=== PATIENT | female | born 1935 | race Caucasian/White ===

== ENCOUNTER 2018-05-28 14:56 | Inpatient (IN) | payer MEDICARE, BC, OTHER ==
[~2018-05-28] VITALS: Ht 160 cm; Wt 72.6 kg
[~2018-05-28 14:56] MED LIST: ACET-868 PO; ASPI-605 PO; BUSP15TA3 PO; CARB-92 PO; CLON0.5T12 PO; DIVA500T2 PO; DOCU-141 PO; ERGO500014 PO; GABA600T2 PO; HYDR-3974 PO; LACT10SO PO; LEVO50TA PO; MAG355OR18 PO; MAGN400O21 PO; METO25TA6 PO; ONDA4TAB5 PO; OXCA300T4 PO; QUET25TA PO; SENN8.6T60 PO; SIMV20TA6 PO; TRAZ-182 PO; ZOLP5TAB2 PO
[2018-05-28] MEDS ORDERED: IV NS 0.9% 1,000 ML BAG IV ONE ×2 (15:30→17:00)
[2018-05-28] MEDS ORDERED: CEFTRIAXONE 1GM BAG (ER ONLY) 50 ML IV ONE ×2 (15:30→15:34)
[2018-05-28] MEDS ORDERED: LEVOFLOXACIN 750 MG /D5W 150ML 150 ML IV ONE ×2 (15:30→15:51)
[2018-05-28] MEDS ORDERED: VANCOMYCIN 1 GM in IV D5W 250 ML IV ONE (15:30)
--- NOTE | 2018-05-28 15:32 | NUR ---
IV started and blood drawn with blood culture x2 - daughter at bedside
[2018-05-28 15:38] LABS: BASOPHILS % (AUTO) 0.3 % (0.0-2.0); EOSINOPHILS % (AUTO) 0.4 % (0.0-6.0); HEMATOCRIT 47 % (33-45); HEMOGLOBIN 15.5 g/dL (11.5-14.8); LYMPHOCYTES # (AUTO) 0.9 /CMM (0.8-4.8); LYMPHOCYTES % (AUTO) 6.5 % (20.0-44.0); MEAN CORPUSCULAR HGB CONC 33 g/dl (31.0-36.0); MEAN CORPUSCULAR VOLUME 95 fL (82-100); MONOCYTES # (AUTO) 0.7 /CMM (0.1-1.30); MONOCYTES % (AUTO) 5.3 % (2.0-12.0); NEUTROPHILS # (AUTO) 11.8 /CMM (1.8-8.9); NEUTROPHILS % (AUTO) 87.5 % (43.0-81.0); PLATELET COUNT (AUTO) 294 /CMM (150-450); RED BLOOD CELL COUNT(AUTO) 4.97 MIL/uL (4.0-5.2); WHITE BLOOD COUNT (AUTO) 13.5 K/uL (4.3-11.0)
--- NOTE | 2018-05-28 15:46 | NUR ---
nasal swab for flu obtained and sent to lab
[2018-05-28 15:49] LABS: CALCIUM, SERUM 8.7 mg/dL (8.5-10.1); CARBON DIOXIDE 34 mmol/L (21-32); CHLORIDE 102 mmol/L (98-107); CREATININE 0.7 mg/dL (0.6-1.3); GLUCOSE 170 mg/dL (74-106); POTASSIUM 4.5 mmol/L (3.5-5.1); SODIUM SERUM 142 mmol/L (136-145); UREA NITROGEN, BLOOD 12 mg/dL (7-18)
[2018-05-28] MEDS ORDERED: VANCOMYCIN 1 GM VIAL ONE (15:51)
--- NOTE | 2018-05-28 15:58 | NUR ---
lactic acid 4.[address] Palacio
[2018-05-28 16:02] LABS: B-TYPE NATRIURETIC PEPTIDE 1296 PG/ML (0-125)
[2018-05-28] MEDS ORDERED: ASPIRIN 300 MG/SUPP.RECT RC ONE ×2 (17:00→17:07)
--- NOTE | 2018-05-28 17:25 | NUR ---
Attempt to call for report done COREY Carey will call back.
[2018-05-28] MEDS ORDERED: Medication Not On Formulary EA (Ondansetron Hcl (Zofran) 1 TAB) PO SCH (17:30)
[2018-05-28] MEDS ORDERED: MAGNESIUM HYDROXIDE 30 ML UDC PO PRN (17:30)
[2018-05-28] MEDS ORDERED: Z GUARD REMEDY 2 OZ OINT TP PRN (17:30)
[2018-05-28] MEDS ORDERED: ONDANSETRON HCL/PF 4 MG/2 ML VIAL IVP PRN (17:30)
[2018-05-28] MEDS ORDERED: MAG HYDROX/AL HYDROX/SIMETH 30 ML UDC PO PRN (17:30)
[2018-05-28] MEDS ORDERED: clonazePAM 1 MG TABLET PO ONE (17:30)
[2018-05-28] MEDS: GABAPENTIN 300 MG CAPSULE PO SCH (17:30)
[2018-05-28] MEDS ORDERED: HYDROCODONE/APAP 5/325MG 1 EACH TABLET PO PRN (17:30)
[2018-05-28] MEDS ORDERED: ACETAMINOPHEN 325 MG TABLET PO PRN (17:30)
[2018-05-28] MEDS ORDERED: clonazePAM 1 MG TABLET ONE (17:49)
[2018-05-28] MEDS: OXCARBAZEPINE 150 MG TABLET PO SCH (18:00)
[2018-05-28] MEDS: TRAZODONE 50 MG TABLET PO SCH (18:00)
[2018-05-28] MEDS: QUETIAPINE FUMARATE 25 MG TABLET PO SCH (18:00)
--- NOTE | 2018-05-28 18:01 | NUR ---
report given to COREY Young over the phone. wheezing reported by pt's daughter at bedside. Dr. Palacio informed recommended to stop iv bolus. Second liter of NS not completed this was endorsed to COREY Young.
--- NOTE | 2018-05-28 18:08 | NUR ---
reflex lactic being drawn
[2018-05-28] MEDS: DIVALPROEX SODIUM 250 MG TABLET.DR PO SCH (18:30)
--- NOTE | 2018-05-28 18:32 | NUR ---
PT TRANSPORTED TO ROOM 120-2 BY BED PER PROTOCOL. PT SHOWING NO S/O DISTRESS ACCOMPANIED BY DAUGHTER. PT'S CARE ENDORSED TO COREY MONZON AT BEDSIDE. REFLEX LACTIC ACID DRAWN PRIOR TO TRANSFER. IVF BOLU ENDORSED TO NICOLÁS.
[2018-05-28 18:39] LABS: BILIRUBIN,DIRECT 0.1 mg/dL (0.0-0.2); BILIRUBIN,TOTAL 0.4 mg/dL (0.2-1.0)
--- NOTE | 2018-05-28 18:40 | NUR ---
GRADY RN NOTES ADMITTED FROM ER, DX PNEUMONIA PER DR. URRUTIA. ON 3LPM NASAL CANULA. O2 SAT 95% BP 122/77 TEMP 98.8 RR 20 IL 60. PT MADE COMFORTABLE AT THIS TIME. NOTED TO BE JITTERY. IVF 2ND BAG FOR SEPSIS PROTOCOL UNFINISHED DUE TO WHEEZING AT ER. ENDORSED TO NEXT SHIFT FOR CANDY.
--- NOTE | 2018-05-28 19:36 | NUR ---
CERTIFIED PARALEGAL NOTES DAUGHTER WANTS DNR/DNI WITH SELECTIVE TREATMENT. CHARGE NURSE AT BEDSIDE FOR WITNESS. GEOVANNA SIGNED. WILL MONITOR PT CLOSELY.
--- NOTE | 2018-05-28 19:57 | NUR ---
INTERNAL CARVER NOTES RECEIVED PT ON BED, A/O X1. ON TELE MONITOR AFIB 109. ON NASAL CANNULA 4LPM SATURATING WELL. IV ACCESS ON LAC G22 AND LEFT WRIST G22 PATENT AND INTACT. HEAD OF BED ELEVATED. SIDE RAILS UP. CALL LIGHT WITHIN REACH. BED ALARM ON. WILL CONTINUE TO MONITOR PT CLOSELY.
[2018-05-28] MEDS ORDERED: FUROSEMIDE 40 MG/4 ML VIAL IV ONE (20:00)
[2018-05-28] MEDS: CARBIDOPA/LEVODOPA 10/100 MG 1 UDTAB PO SCH (20:02)
--- NOTE | 2018-05-28 20:02 | NUR ---
PRODUCTION CREW SUPERVISOR NOTES UNABLE TO GIVE PO MEDS. PT ALTERED AND ASPIRATION RISK. WILL MONITOR PT CLOSELY.
[2018-05-28] MEDS ORDERED: DILTIAZEM HCL 50 MG IV IV ONE (20:30)
[2018-05-28] MEDS ORDERED: ENOXAPARIN SODIUM 40 MG/0.4 ML DISP.SYRIN SQ ONE (20:30)
[2018-05-28] MEDS ORDERED: DILTIAZEM HCL 50 MG IV IV PRN (20:30)
[2018-05-28 22:00] VITALS: BP 116/60
--- NOTE | 2018-05-28 22:58 | NUR ---
RADIOLOGY PHYSICIAN ASSISTANT NOTES CALLED DR. MEDELLIN FOR PT FEVER OF 101.3. COOLING MEASURES DONE. AWAITING ORDERS. WILL CONTINUE TO MONITOR PT CLOSELY.
[2018-05-29] VITALS (7 sets, daily range): BP systolic 103–136; BP diastolic 68–98
--- NOTE | 2018-05-29 00:04 | NUR ---
PENSION ADMINISTRATOR NOTES CALLED DR. MEDELLIN CALLED FOR TROPONIN OF .486. NO NEW ORDERS. WILL MONITOR PT CLOSELY.
[2018-05-29] MEDS: ACETAMINOPHEN 650 MG/SUPP.RECT RC PRN ×2 (00:07→06:00)
--- NOTE | 2018-05-29 06:47 | NUR ---
CHRONOMETER REPAIRER NOTES NO ACUTE CHANGES NOTED THROUGHOUT THE SHIFT. TROPONIN TRENDING UP, INFORMED ELECTRODE TURNER AND FINISHER NO FURTHER ORDERS. INSERTED DE LEON FOR URINE OUTPUT MONITORING. PROVIDED COMFORT AND SAFETY. WILL ENDORSE TO THE AM NURSE FOR CONTINUITY OF CARE.
[2018-05-29 07:06] LABS: BASOPHILS % (AUTO) 0.2 % (0.0-2.0); EOSINOPHILS % (AUTO) 0.1 % (0.0-6.0); HEMATOCRIT 42 % (33-45); HEMOGLOBIN 13.6 g/dL (11.5-14.8); LYMPHOCYTES # (AUTO) 1.2 /CMM (0.8-4.8); LYMPHOCYTES % (AUTO) 9.6 % (20.0-44.0); MEAN CORPUSCULAR HGB CONC 33 g/dl (31.0-36.0); MEAN CORPUSCULAR VOLUME 94 fL (82-100); MONOCYTES # (AUTO) 0.8 /CMM (0.1-1.30); NEUTROPHILS # (AUTO) 10.9 /CMM (1.8-8.9); NEUTROPHILS % (AUTO) 84.1 % (43.0-81.0); PLATELET COUNT (AUTO) 225 /CMM (150-450); RED BLOOD CELL COUNT(AUTO) 4.45 MIL/uL (4.0-5.2)
[2018-05-29 07:26] LABS: CALCIUM, SERUM 7.9 mg/dL (8.5-10.1); CARBON DIOXIDE 31 mmol/L (21-32); CHLORIDE 104 mmol/L (98-107); CREATININE 0.8 mg/dL (0.6-1.3); GLUCOSE 130 mg/dL (74-106); MAGNESIUM 1.9 mg/dL (1.8-2.4); POTASSIUM 4.4 mmol/L (3.5-5.1); SODIUM SERUM 142 mmol/L (136-145); UREA NITROGEN, BLOOD 17 mg/dL (7-18)
[2018-05-29] MEDS: LEVOTHYROXINE SODIUM 50 MCG TABLET PO SCH (07:30)
[2018-05-29] MEDS: FUROSEMIDE 40 MG/4 ML VIAL IV SCH (08:56)
[2018-05-29] MEDS: DIVALPROEX SODIUM 250 MG TABLET.DR PO SCH ×3 (09:00→18:53)
[2018-05-29] MEDS: CARBIDOPA/LEVODOPA 10/100 MG 1 UDTAB PO SCH ×4 (09:00→21:41)
[2018-05-29] MEDS: GABAPENTIN 300 MG CAPSULE PO SCH ×3 (09:00→18:52)
[2018-05-29] MEDS ORDERED: MAG HYDROX/AL HYDROX/SIMETH 30 ML UDC PO SCH (09:00)
[2018-05-29] MEDS ORDERED: ERGOCALCIFEROL (VITAMIN D 2) 50,000 UNIT CAPSULE PO SCH (09:00)
[2018-05-29] MEDS: DOCUSATE SODIUM 100 MG CAPSULE PO SCH ×2 (09:00→18:51)
[2018-05-29] MEDS: busPIRone HCL 10 MG TABLET PO SCH ×2 (09:00→13:42)
[2018-05-29] MEDS ORDERED: MAGNESIUM HYDROXIDE 30 ML UDC PO SCH (09:00)
[2018-05-29] MEDS: SENNOSIDES 8.6 MG TABLET PO SCH ×2 (09:00→18:53)
[2018-05-29] MEDS: SIMVASTATIN 20 MG TABLET PO SCH (09:00)
[2018-05-29] MEDS: clonazePAM 0.5 MG TABLET PO SCH ×2 (09:00→18:53)
--- NOTE | 2018-05-29 09:00 | NUR ---
AM MEDS HELD DUE TO PATIENT'S MENTAL STATUS AND INABILITY TO FOLLOW COMMANDS WHEN INSTRUCTED TO SWALLOW ASPIRATION PRECAUTIONS IMPLEMENTED AWAITING NAYELI
[2018-05-29] MEDS: ENOXAPARIN SODIUM 40 MG/0.4 ML DISP.SYRIN SQ SCH (11:00)
--- NOTE | 2018-05-29 11:27 | NUR ---
PER ST NAYELIAL RECOMMENDATIONS PUREED DIET WITH NECTAR THICK
[2018-05-29] MEDS ORDERED: PIPERACILLIN /TAZOBACTAM 3.375 G in IV D5W 50 ML IV ONE (12:00)
[2018-05-29] MEDS: LACTULOSE 10 G/15 ML UDC (PYXIS) PO SCH (12:29)
[2018-05-29] MEDS: ASPIRIN EC 81 MG TABLET.DR PO SCH (12:31)
[2018-05-29] MEDS: OXCARBAZEPINE 150 MG TABLET PO SCH ×2 (12:31→18:53)
[2018-05-29] MEDS: METOPROLOL TARTRATE 25 MG TABLET PO SCH ×2 (12:33→18:52)
--- NOTE | 2018-05-29 13:16 | NUR ---
XRAY FOR HIP PER DR URRUTIA
[2018-05-29] MEDS ORDERED: DILTIAZEM HCL 25 MG IV IV PRN (13:30)
--- NOTE | 2018-05-29 15:59 | NUR ---
per dr Todd obtain consult for Neurology and Psych verbal readback done
--- NOTE | 2018-05-29 16:00 | NUR ---
FACE SHEET FAXED TO [employer]
[2018-05-29] MEDS: PIPERACILLIN /TAZOBACTAM 3.375 G in IV D5W 100 ML IV SCH (18:46)
[2018-05-29] MEDS: QUETIAPINE FUMARATE 25 MG TABLET PO SCH (18:52)
[2018-05-29] MEDS: busPIRone 5 MG TABLET PO SCH (18:52)
[2018-05-29] MEDS: TRAZODONE 50 MG TABLET PO SCH (18:53)
--- NOTE | 2018-05-29 19:00 | NUR ---
SPOKE TO LAB REGARDING DELIVERY OF FLU SWABS THEY ARE UNAVAILABLE IN THE UNIT
--- NOTE | 2018-05-29 19:30 | NUR ---
RECEIVED PT IN BED SLEEPING, AROUSABLE BY CALLING HER NAME. BREATHING EVENLY . NO SOB. ON SUPPLEMENTAL O2. NO S/S OF PAIN OR DISCOMFORT. NO IV SITE UPON RECEIVING THE PT. A 22G IV WAS INSERTED ON L HAND W/ GOOD BLOOD DRAW AND ZOSYN WAS RESUMED. BED LOW LOCKED . SRX2. CALL LIGHT WITHIN REACH. WILL CONT TO MONITOR ,
--- NOTE | 2018-05-29 19:40 | NUR ---
RN NOTES PATIENT RESTING IN BED. NONLABORED BREATHING NOTED ON 2L NASAL CANNULA. NO FACIAL GRIMACING ASPIRATION AND FALL PRECAUTIONS IMPLEMENTED THROUGHOUT SHIFT. PATIENT KEPT CLEAN AND DRY THROUGHOUT SHIFT. TURNED AND REPOSITIONED EVERY 2HOURS PATIENT IV LINE NOW. X2 ATTEMPTED IV LINE INSERTIONS. ENDORSED TO DEDRICK NICOLE
[2018-05-29] MEDS ORDERED: ENOXAPARIN SODIUM 40 MG/0.4 ML DISP.SYRIN SQ SCH (22:00)
[2018-05-30] MEDS: PIPERACILLIN /TAZOBACTAM 3.375 G in IV D5W 100 ML IV SCH ×3 (01:49→17:16)
[2018-05-30 04:00] VITALS: BP 111/55
[2018-05-30 06:29] LABS: BASOPHILS % (AUTO) 0.5 % (0.0-2.0); EOSINOPHILS % (AUTO) 2.9 % (0.0-6.0); HEMATOCRIT 41 % (33-45); HEMOGLOBIN 13.4 g/dL (11.5-14.8); LYMPHOCYTES # (AUTO) 1.2 /CMM (0.8-4.8); LYMPHOCYTES % (AUTO) 15.7 % (20.0-44.0); MEAN CORPUSCULAR HGB CONC 32 g/dl (31.0-36.0); MEAN CORPUSCULAR VOLUME 94 fL (82-100); MONOCYTES # (AUTO) 0.5 /CMM (0.1-1.30); MONOCYTES % (AUTO) 6.8 % (2.0-12.0); NEUTROPHILS # (AUTO) 5.6 /CMM (1.8-8.9); NEUTROPHILS % (AUTO) 74.1 % (43.0-81.0); PLATELET COUNT (AUTO) 222 /CMM (150-450); WHITE BLOOD COUNT (AUTO) 7.6 K/uL (4.3-11.0)
--- NOTE | 2018-05-30 06:39 | NUR ---
PT IN BED RESTING COMFORTABLY. BREATHING EVENLY. NO SOB. NO ACUTE EVENT DURING THE NIGHT . REMAINED STABLE. CLEANED AND DRIED. REPOSITIONED ROUTINELY. BED LOW LOCKED. SRX3. CALL LIGHT WITHIN REACH. WILL CONT TO MONITOR AND WILL ENDORSE TO AM SHIFT FOR CANDY .
[2018-05-30 06:41] LABS: ALANINE AMINOTRANSFERASE 10 U/L (12-78); ALBUMIN 2.4 g/dL (3.4-5.0); ALKALINE PHOSPHATASE 64 U/L (46-116); ASPARTATE AMINOTRANSFERASE 20 U/L (15-37); BILIRUBIN,TOTAL 0.9 mg/dL (0.2-1.0); CALCIUM, SERUM 8.6 mg/dL (8.5-10.1); CARBON DIOXIDE 31 mmol/L (21-32); CHLORIDE 104 mmol/L (98-107); CREATININE 0.8 mg/dL (0.6-1.3); GLUCOSE 125 mg/dL (74-106); PHOSPHORUS 4.1 mg/dL (2.5-4.9); POTASSIUM 3.6 mmol/L (3.5-5.1); SODIUM SERUM 142 mmol/L (136-145); TOTAL PROTEIN, SERUM 6.4 g/dL (6.4-8.2); UREA NITROGEN, BLOOD 24 mg/dL (7-18)
[2018-05-30 07:08] LABS: APPEARANCE,URINE TURBID (CLEAR); BILIRUBIN,URINE NEGATIVE (NEGATIVE); BLOOD, URINE 3+ Ery/uL (NEGATIVE); COLOR,URINE YELLOW (YELLOW); KETONES,URINE TRACE (NEGATIVE); LEUKOCYTE ESTERASE ,URINE TRACE (NEGATIVE); NITRITE, URINE NEGATIVE (NEGATIVE); PROTEIN,URINE 1+ mg/dl (NEGATIVE); UGLUCOSE NEGATIVE (NEGATIVE); UROBILINOGEN,URINE 0.2 EU/dL (0.2)
[2018-05-30 07:18] LABS: RBC,URINE 51-80 /HPF (0-2)
[2018-05-30 07:20] LABS: BACTERIA,URINE Moderate /HPF (None Seen); SQUAMOUS EPITHELIAL CELL,UR Few /HPF (None Seen)
--- NOTE | 2018-05-30 07:30 | NUR ---
M/S RN - Assessment Patient is awake, non-verbal, no s/s pain, no evidence of resp. distress seen, on 2lpm via NC. Saline lock on the left hand is patent, intact, with no signs of infiltration. Hendrix catheter in place. Labs reviewed no critical results seen, troponin trending down. All needs attended and met. Fall and aspiration precautions maintained. Will continue with current medical management.
[2018-05-30] MEDS: LEVOTHYROXINE SODIUM 50 MCG TABLET PO SCH (07:34)
[2018-05-30 08:00] VITALS: BP 96/44
[2018-05-30] MEDS: CARBIDOPA/LEVODOPA 10/100 MG 1 UDTAB PO SCH ×4 (08:34→21:17)
[2018-05-30] MEDS: SENNOSIDES 8.6 MG TABLET PO SCH ×2 (08:34→16:37)
[2018-05-30] MEDS: OXCARBAZEPINE 150 MG TABLET PO SCH ×2 (08:34→16:37)
[2018-05-30] MEDS: ASPIRIN EC 81 MG TABLET.DR PO SCH (08:34)
[2018-05-30] MEDS: DIVALPROEX SODIUM 250 MG TABLET.DR PO SCH ×3 (08:34→16:37)
[2018-05-30] MEDS: busPIRone 5 MG TABLET PO SCH ×3 (08:34→16:37)
[2018-05-30] MEDS: GABAPENTIN 300 MG CAPSULE PO SCH ×3 (08:34→16:37)
[2018-05-30] MEDS: clonazePAM 0.5 MG TABLET PO SCH ×2 (08:34→16:37)
[2018-05-30] MEDS: SIMVASTATIN 20 MG TABLET PO SCH (08:35)
[2018-05-30] MEDS: LACTULOSE 10 G/15 ML UDC (PYXIS) PO SCH (08:35)
[2018-05-30] MEDS: FUROSEMIDE 40 MG/4 ML VIAL IV SCH (08:35)
[2018-05-30] MEDS: ENOXAPARIN SODIUM 40 MG/0.4 ML DISP.SYRIN SQ SCH (08:38)
[2018-05-30] MEDS: METOPROLOL TARTRATE 25 MG TABLET PO SCH ×2 (08:38→16:38)
[2018-05-30] MEDS ORDERED: ERGOCALCIFEROL (VITAMIN D 2) 50,000 UNIT CAPSULE PO SCH (09:00)
[2018-05-30 16:00] VITALS: BP 161/90
[2018-05-30] MEDS: QUETIAPINE FUMARATE 25 MG TABLET PO SCH (17:16)
[2018-05-30] MEDS: TRAZODONE 50 MG TABLET PO SCH (17:16)
--- NOTE | 2018-05-30 17:55 | NUR ---
M/S RN - Closing notes Patient more awake, nonverbal, remain afebrile, no s/s of pain, not in any for of distress, on 2lpm via NC, tolerated pureed diet well, no n/v. Peripheral IV on the left hand is patent, intact, flushing well. All needs attended and met. Pending neuro and psych consult. Will continue with current medical management.
--- NOTE | 2018-05-30 18:15 | NUR ---
M/S RN - Psych Eval Seen and examined by Dr. You, adjusted psych meds. Per Dr. You, have hospitalist discontinue Trileptal and decrease dose of Depakote.
[2018-05-30 20:00] VITALS: BP 140/75
[2018-05-31] MEDS: PIPERACILLIN /TAZOBACTAM 3.375 G in IV D5W 100 ML IV SCH ×3 (02:55→18:58)
[2018-05-31 04:00] VITALS: BP 152/84
[2018-05-31] MEDS: ACETAMINOPHEN 650 MG/SUPP.RECT RC PRN (04:09)
[2018-05-31 06:21] VITALS: BP 152/84
[2018-05-31 07:22] LABS: BASOPHILS % (AUTO) 0.3 % (0.0-2.0); EOSINOPHILS % (AUTO) 1.2 % (0.0-6.0); HEMATOCRIT 40 % (33-45); HEMOGLOBIN 13.1 g/dL (11.5-14.8); LYMPHOCYTES # (AUTO) 1.2 /CMM (0.8-4.8); LYMPHOCYTES % (AUTO) 12.4 % (20.0-44.0); MEAN CORPUSCULAR HGB CONC 33 g/dl (31.0-36.0); MEAN CORPUSCULAR VOLUME 94 fL (82-100); MONOCYTES # (AUTO) 0.8 /CMM (0.1-1.30); MONOCYTES % (AUTO) 7.7 % (2.0-12.0); NEUTROPHILS # (AUTO) 7.7 /CMM (1.8-8.9); NEUTROPHILS % (AUTO) 78.4 % (43.0-81.0); PLATELET COUNT (AUTO) 233 /CMM (150-450); RED BLOOD CELL COUNT(AUTO) 4.27 MIL/uL (4.0-5.2); WHITE BLOOD COUNT (AUTO) 9.8 K/uL (4.3-11.0)
[2018-05-31 07:31] LABS: CALCIUM, SERUM 8.4 mg/dL (8.5-10.1); CARBON DIOXIDE 28 mmol/L (21-32); CHLORIDE 104 mmol/L (98-107); CREATININE 0.7 mg/dL (0.6-1.3); GLUCOSE 135 mg/dL (74-106); PHOSPHORUS 3.6 mg/dL (2.5-4.9); POTASSIUM 3.5 mmol/L (3.5-5.1); SODIUM SERUM 139 mmol/L (136-145); UREA NITROGEN, BLOOD 26 mg/dL (7-18)
[2018-05-31 08:00] VITALS: BP 145/74
[2018-05-31] MEDS: OXCARBAZEPINE 150 MG TABLET PO SCH (09:00)
[2018-05-31] MEDS: DIVALPROEX SODIUM 125 MG CAP.SPRINK PO SCH ×3 (09:00→17:00)
[2018-05-31] MEDS: ENOXAPARIN SODIUM 40 MG/0.4 ML DISP.SYRIN SQ SCH (11:58)
[2018-05-31] MEDS: LEVOTHYROXINE SODIUM 50 MCG TABLET PO SCH (11:59)
[2018-05-31] MEDS: CARBIDOPA/LEVODOPA 10/100 MG 1 UDTAB PO SCH (11:59)
[2018-05-31] MEDS: LACTULOSE 10 G/15 ML UDC (PYXIS) PO SCH (11:59)
[2018-05-31] MEDS: clonazePAM 0.5 MG TABLET PO SCH ×2 (12:00→18:54)
[2018-05-31] MEDS: METOPROLOL TARTRATE 25 MG TABLET PO SCH ×2 (12:00→18:54)
[2018-05-31] MEDS: SIMVASTATIN 20 MG TABLET PO SCH (12:00)
[2018-05-31] MEDS: GABAPENTIN 300 MG CAPSULE PO SCH ×3 (12:00→18:54)
[2018-05-31] MEDS: SENNOSIDES 8.6 MG TABLET PO SCH ×2 (12:01→18:55)
[2018-05-31] MEDS: ASPIRIN EC 81 MG TABLET.DR PO SCH (12:01)
[2018-05-31] MEDS: busPIRone 5 MG TABLET PO SCH ×3 (12:02→18:54)
[2018-05-31] MEDS: FUROSEMIDE 40 MG/4 ML VIAL IV SCH (12:02)
--- NOTE | 2018-05-31 12:43 | NUR ---
RITA RN NOTE PATIENT DAUGHTER CALLED AND DOES NOT WANT PATIENT TO CONTINUE TRILEPTAL AND PER DAUGHTER, DEPAKOTE DOSE IS TOO LARGE. HELD DEPAKOTE FOR NOW PER DAUGHTER'S REQUEST.
[2018-05-31] MEDS ORDERED: CARBIDOPA/LEVODOPA 25/100 MG 1 UDTAB PO SCH (13:00)
[2018-05-31] MEDS: CARBIDOPA/LEVODOPA 25/100 MG 1 UDTAB PO SCH ×2 (14:29→18:55)
[2018-05-31 16:00] VITALS: BP 106/60
[2018-05-31] MEDS: TRAZODONE 50 MG TABLET PO SCH (18:00)
[2018-05-31] MEDS: QUETIAPINE FUMARATE 25 MG TABLET PO SCH (18:00)
--- NOTE | 2018-05-31 19:15 | NUR ---
ENEDELIASUJESSENIA RN NOTE PATIENT RESTING IN BED IN STABLE CONDITION, DAUGHTER AT BEDSIDE FEEDING PATIENT DINNER. PER DAUGHTER'S REQUEST, HELD TRAZODONE, SEROQUEL, AND DEPAKOTE TONIGHT. WILL NOTIFY AGUILAR PATINO. DISCONTINUED TRILEPTAL PER AGUILAR PATINO DR. AMNN RECOMMENDED. IV SITE ON LEFT WRIST INTACT, CALL LIGHT WITHIN REACH. BED IN LOW LOCKED POSITION, ENDORSED TO PARTNER MANAGER NURSE FOR CONTINUITY OF CARE.
[2018-05-31 20:00] VITALS: BP 139/73
[2018-06-01] MEDS: PIPERACILLIN /TAZOBACTAM 3.375 G in IV D5W 100 ML IV SCH (01:03)
[2018-06-01 04:00] VITALS: BP 125/68
--- NOTE | 2018-06-01 07:30 | NUR ---
MS RN OPENING NOTES RECEIVED PATIENT IN STABLE CONDITION. IN NO APPARENT DISTRESS. BEDSIDE RAILS ARE UPX2. BED IS LOCKED AND LOWERED. CALL LIGHT IS WITHIN REACH. IV LINE IS INTACT AND PATENT. WILL CONTINUE TO MONITOR PATIENT.
[2018-06-01 08:00] VITALS: BP 133/82
[2018-06-01] MEDS: LACTULOSE 10 G/15 ML UDC (PYXIS) PO SCH (08:05)
[2018-06-01] MEDS: SIMVASTATIN 20 MG TABLET PO SCH (08:06)
[2018-06-01] MEDS: clonazePAM 0.5 MG TABLET PO SCH ×2 (08:06→17:27)
[2018-06-01] MEDS: FUROSEMIDE 40 MG/4 ML VIAL IV SCH (08:06)
[2018-06-01] MEDS: busPIRone 5 MG TABLET PO SCH ×3 (08:06→17:27)
[2018-06-01] MEDS: CARBIDOPA/LEVODOPA 25/100 MG 1 UDTAB PO SCH ×3 (08:06→17:25)
[2018-06-01] MEDS: GABAPENTIN 300 MG CAPSULE PO SCH ×3 (08:06→17:25)
[2018-06-01] MEDS: ASPIRIN EC 81 MG TABLET.DR PO SCH (08:06)
[2018-06-01] MEDS: DIVALPROEX SODIUM 125 MG CAP.SPRINK PO SCH ×3 (08:07→17:27)
[2018-06-01] MEDS: LEVOTHYROXINE SODIUM 50 MCG TABLET PO SCH (08:07)
[2018-06-01] MEDS: SENNOSIDES 8.6 MG TABLET PO SCH ×2 (08:07→17:26)
[2018-06-01] MEDS: METOPROLOL TARTRATE 25 MG TABLET PO SCH ×2 (08:07→17:28)
[2018-06-01] MEDS: ENOXAPARIN SODIUM 40 MG/0.4 ML DISP.SYRIN SQ SCH (08:24)
[2018-06-01 15:59] VITALS: BP 120/70
[2018-06-01 16:00] VITALS: BP 120/70
[2018-06-01 17:28] VITALS: BP 120/70
[2018-06-01] MEDS: TRAZODONE 50 MG TABLET PO SCH (17:28)
[2018-06-01] MEDS: QUETIAPINE FUMARATE 25 MG TABLET PO SCH (17:31)
--- NOTE | 2018-06-01 18:33 | NUR ---
MS RN CLOSING NOTES PATIENT IS IN STABLE CONDITION. IN NO APPARENT DISTRESS. BEDSIDE RAILS ARE UPX2. BED IS LOCKED AND LOWERED. CALL LIGHT IS WITHIN REACH. IV LINE IS INTACT AND PATENT. ALL NEEDS WERE MET. WILL ENDORSE CARE TO MECHANICAL DESIGN ENGINEER FACILITIES NURSE FOR CANDY.
== END 2018-06-01 20:23 | DRG 280 ==
LOC: ER 14:58 → TELE-TD 18:06 → TELE1 19:20 → MEDSG1 05-29 10:38
PROVIDERS: ADMIT Internal Medicine; ATTEND Nurse Practitioner Acute Care
DX: I11.0 Hypertensive heart disease with heart failure (principal); I21.A1 Myocardial infarction type 2; G92 Toxic encephalopathy; J96.91 Respiratory failure, unspecified with hypoxia; F02.81 Dementia in other diseases classified elsewhere, unspecified severity, with behavioral disturbance; G30.9 Alzheimer's disease, unspecified; K21.9 Gastro-esophageal reflux disease without esophagitis; R13.10 Dysphagia, unspecified; F32.9 Major depressive disorder, single episode, unspecified; F41.9 Anxiety disorder, unspecified; G62.9 Polyneuropathy, unspecified; E78.5 Hyperlipidemia, unspecified; Z86.73 Personal history of transient ischemic attack (TIA), and cerebral infarction without residual deficits; E03.9 Hypothyroidism, unspecified; G20 Parkinson's disease; I48.2 Chronic atrial fibrillation; E11.9 Type 2 diabetes mellitus without complications; Z66 Do not resuscitate; F20.9 Schizophrenia, unspecified; I50.33 Acute on chronic diastolic (congestive) heart failure
CPT/HCPCS: 36415; 71045-TC; 72170-TC; 80048-TC; 80053-TC; 81000-TC; 82247-TC; 82248-TC; 82962-TC; 83605-TC; 83735-TC; 83880; 84100-TC; 84484-TC; 85025-TC; 87040-TC; 87081-TC; 87086-TC; 87400; 92526; 92611-TC; 93307-TC; A4606; G0378; J0696; J1650; J1940; J1956; J2543; J3370; J3490; J7030; J7050; J7060; Z7610

== ENCOUNTER 2018-06-06 12:29 | Inpatient (IN) | payer MEDICARE, BC, OTHER ==
[2018-06-06] VITALS (25 sets, daily range): BP systolic 102–175; BP diastolic 38–131
[~2018-06-06] VITALS: Ht 156.2 cm; Wt 72.1 kg
[~2018-06-06 12:29] MED LIST changes: +GABA600T12 PO; -GABA600T2 PO
[2018-06-06] MEDS ORDERED: PROPOFOL 0 ML ONE (12:37)
[2018-06-06] MEDS ORDERED: ACETAMINOPHEN 650 MG/SUPP.RECT RC ONE ×2 (12:52→13:00)
[2018-06-06 12:56] LABS: BASOPHILS # (AUTO) 0.1 /CMM (0.0-0.2); BASOPHILS % (AUTO) 0.4 % (0.0-2.0); EOSINOPHILS % (AUTO) 0.1 % (0.0-6.0); HEMATOCRIT 47 % (33-45); HEMOGLOBIN 14.8 g/dL (11.5-14.8); LYMPHOCYTES # (AUTO) 2.2 /CMM (0.8-4.8); LYMPHOCYTES % (AUTO) 14.4 % (20.0-44.0); MEAN CORPUSCULAR HGB CONC 32 g/dl (31.0-36.0); MEAN CORPUSCULAR VOLUME 97 fL (82-100); MONOCYTES # (AUTO) 0.7 /CMM (0.1-1.30); MONOCYTES % (AUTO) 4.3 % (2.0-12.0); NEUTROPHILS # (AUTO) 12.3 /CMM (1.8-8.9); NEUTROPHILS % (AUTO) 80.8 % (43.0-81.0); PLATELET COUNT (AUTO) 359 /CMM (150-450); RED BLOOD CELL COUNT(AUTO) 4.78 MIL/uL (4.0-5.2); WHITE BLOOD COUNT (AUTO) 15.3 K/uL (4.3-11.0)
[2018-06-06] MEDS ORDERED: IV NS 0.9% 1,000 ML BAG IV ONE (13:00)
[2018-06-06] MEDS ORDERED: NOREPINEPHRINE 8 MG in IV D5W 500 ML IV PRN (13:00)
[2018-06-06] MEDS ORDERED: MIDAZOLAM HCL 2 MG/2ML VIAL IV ONE (13:00)
[2018-06-06] MEDS ORDERED: CEFEPIME 1 GM in IV D5W 50 ML IV ONE (13:00)
[2018-06-06] MEDS ORDERED: MIDAZOLAM HCL 2 MG/2ML VIAL ONE (13:00)
[2018-06-06] MEDS ORDERED: FENTANYL PF 100MCG/2ML AMPUL IV ONE (13:00)
[2018-06-06] MEDS ORDERED: FENTANYL PF 100MCG/2ML AMPUL ONE (13:00)
[2018-06-06] MEDS ORDERED: ROCURONIUM BROMIDE 100 MG/10 ML VIAL IV ONE (13:00)
[2018-06-06] MEDS ORDERED: VANCOMYCIN 1 GM in IV D5W 250 ML IV ONE (13:00)
[2018-06-06] MEDS ORDERED: ETOMIDATE 2 MG/ML VIAL IV ONE ×2 (13:00→15:39)
[2018-06-06 13:06] LABS: CALCIUM, SERUM 8.8 mg/dL (8.5-10.1); CARBON DIOXIDE 25 mmol/L (21-32); CHLORIDE 103 mmol/L (98-107); CREATININE 1.1 mg/dL (0.6-1.3); GLUCOSE 266 mg/dL (74-106); POTASSIUM 4.3 mmol/L (3.5-5.1); SODIUM SERUM 142 mmol/L (136-145); UREA NITROGEN, BLOOD 25 mg/dL (7-18)
[2018-06-06 13:12] LABS: ALANINE AMINOTRANSFERASE 13 U/L (12-78); ALBUMIN 2.7 g/dL (3.4-5.0); ALKALINE PHOSPHATASE 79 U/L (46-116); ASPARTATE AMINOTRANSFERASE 23 U/L (15-37); BILIRUBIN,DIRECT 0.1 mg/dL (0.0-0.2); BILIRUBIN,TOTAL 0.7 mg/dL (0.2-1.0); TOTAL PROTEIN, SERUM 8.1 g/dL (6.4-8.2)
[2018-06-06] MEDS ORDERED: CRAN450C PO (13:46)
[2018-06-06] MEDS ORDERED: NA P133E RC (13:46)
[2018-06-06] MEDS ORDERED: WARF2TAB57 PO (13:46)
[2018-06-06] MEDS ORDERED: INSU100V3 SQ (13:46)
[2018-06-06] MEDS ORDERED: AMIN887L PO (13:46)
[2018-06-06] MEDS ORDERED: PANT20TA2 PO (13:46)
[2018-06-06] MEDS ORDERED: LACT10SO PO (13:46)
[2018-06-06] MEDS ORDERED: CHOL200026 PO (14:01)
[2018-06-06] MEDS ORDERED: IV NS 0.9% 1,000 ML IV PRN (15:29)
[2018-06-06] MEDS ORDERED: MAG HYDROX/AL HYDROX/SIMETH 30 ML UDC PO PRN (15:30)
[2018-06-06] MEDS ORDERED: ONDANSETRON HCL/PF 4 MG/2 ML VIAL IVP PRN (15:30)
[2018-06-06] MEDS ORDERED: MAGNESIUM HYDROXIDE 30 ML UDC PO PRN (15:30)
[2018-06-06] MEDS ORDERED: HYDROCODONE/APAP 5/325MG 1 EACH TABLET PO PRN (15:30)
[2018-06-06] MEDS ORDERED: Z GUARD REMEDY 2 OZ OINT TP PRN (15:30)
[2018-06-06] MEDS ORDERED: ACETAMINOPHEN 325 MG TABLET PO PRN (15:30)
[2018-06-06] MEDS ORDERED: VANCOMYCIN 1 GM in IV NS 0.9% 250 ML IV SCH (16:00)
[2018-06-06] MEDS ORDERED: CEFEPIME 1 GM in IV NS 0.9% 50 ML IV SCH (16:00)
[2018-06-06 16:01] LABS: APPEARANCE,URINE Clear (CLEAR); BILIRUBIN,URINE Negative (NEGATIVE); BLOOD, URINE Negative Ery/uL (NEGATIVE); COLOR,URINE Yellow (YELLOW); KETONES,URINE Negative (NEGATIVE); LEUKOCYTE ESTERASE ,URINE Negative (NEGATIVE); NITRITE, URINE Negative (NEGATIVE); PROTEIN,URINE 30 mg/dl (NEGATIVE); UGLUCOSE 100 MG/DL mg/dL (NEGATIVE); UROBILINOGEN,URINE 0.2 EU/dL (0.2)
[2018-06-06] MEDS ORDERED: FEE PK DOSING 1 MIN EA MC ONE (16:31)
[2018-06-06] MEDS ORDERED: METOPROLOL TARTRATE 25 MG TABLET PO SCH (17:00)
[2018-06-06] MEDS ORDERED: WARFARIN SODIUM 2 MG TABLET PO SCH (17:00)
[2018-06-06] MEDS ORDERED: SENNOSIDES 8.6 MG TABLET PO SCH (17:00)
[2018-06-06] MEDS ORDERED: DOCUSATE SODIUM 100 MG CAPSULE PO SCH (17:00)
[2018-06-06] MEDS ORDERED: CARBIDOPA/LEVODOPA 10/100 MG 1 UDTAB PO SCH (17:00)
[2018-06-06] MEDS ORDERED: diphenhydrAMINE HCL 50 MG/ML VIAL IV PRN (19:30)
[2018-06-06] MEDS ORDERED: SCOPOLAMINE HBR 1 EA PATCH.TD72 TD SCH (19:30)
[2018-06-06] MEDS ORDERED: MORPHINE SULFATE INJ 2 MG/ML DISP.SYRIN IV ONE (19:30)
[2018-06-06] MEDS ORDERED: ALBUTEROL FS 2.5 MG/3 ML VIAL.NEB NEB SCH (19:30)
[2018-06-06] MEDS: LORAZEPAM INJ 2 MG/ML VIAL IV PRN (20:18)
[2018-06-06] MEDS ORDERED: MORPHINE SULFATE INJ 4 MG/ML DISP.SYRIN IV ONE (20:30)
[2018-06-06] MEDS ORDERED: SIMVASTATIN 20 MG TABLET PO SCH (22:00)
[2018-06-07] VITALS: BP 111/58
[2018-06-07] MEDS ORDERED: CEFEPIME 2 GM in IV D5W 100 ML IV SCH (01:00)
[2018-06-07] MEDS ORDERED: KEY,NONCONTROL,TO KEEP IN PYXI 1 EA MC ONE (06:10)
[2018-06-07] MEDS ORDERED: LEVOTHYROXINE SODIUM 50 MCG TABLET PO SCH (07:30)
[2018-06-07 08:00] VITALS: BP 92/54
[2018-06-07] MEDS ORDERED: VANCOMYCIN 0.75 GM in IV D5W 250 ML IV SCH (08:00)
[2018-06-07] MEDS ORDERED: ASPIRIN EC 81 MG TABLET.DR PO SCH (09:00)
[2018-06-07] MEDS: LORAZEPAM INJ 2 MG/ML VIAL IV PRN (12:36)
[2018-06-07] MEDS ORDERED: ACETAMINOPHEN 650 MG/SUPP.RECT RC PRN (16:00)
== END 2018-06-07 16:10 | disposition expired | DRG 871 ==
LOC: ER 12:30 → ICU 14:35 → MED 23:40
PROVIDERS: ADMIT Internal Medicine; ATTEND Internal Medicine
PROC: 5A1935Z Respiratory Ventilation, Less than 24 Consecutive Hours (ICD-10-PCS; principal; 2018-06-06)
PROC: 0BH17EZ Insertion of Endotracheal Airway into Trachea, Via Natural or Artificial Opening (ICD-10-PCS; 2018-06-06)
DX: A41.9 Sepsis, unspecified organism (principal); J69.0 Pneumonitis due to inhalation of food and vomit; J96.01 Acute respiratory failure with hypoxia; G93.40 Encephalopathy, unspecified; E87.2 Acidosis; Z66 Do not resuscitate; Z51.5 Encounter for palliative care; E11.65 Type 2 diabetes mellitus with hyperglycemia; F02.80 Dementia in other diseases classified elsewhere, unspecified severity, without behavioral disturbance, psychotic disturbance, mood disturbance, and anxiety; G30.9 Alzheimer's disease, unspecified; G20 Parkinson's disease; M19.90 Unspecified osteoarthritis, unspecified site; K21.9 Gastro-esophageal reflux disease without esophagitis; I10 Essential (primary) hypertension; E03.9 Hypothyroidism, unspecified; E78.5 Hyperlipidemia, unspecified; Z91.018 Allergy to other foods; Z79.4 Long term (current) use of insulin; Z79.82 Long term (current) use of aspirin; Z79.01 Long term (current) use of anticoagulants; Z79.899 Other long term (current) drug therapy; I95.9 Hypotension, unspecified; I48.2 Chronic atrial fibrillation; G62.9 Polyneuropathy, unspecified; F41.9 Anxiety disorder, unspecified; F32.9 Major depressive disorder, single episode, unspecified
CPT/HCPCS: 31720; 36415; 71045-TC; 80048-TC; 80076-TC; 81000-TC; 83605-TC; 84484-TC; 85025-TC; 85730-TC; 87040-TC; 87086-TC; 94002-TC; 94799-TC; A4216; G0378; J0692; J2060; J2250; J2270; J2274; J3010; J3370; J3490; J7030; J7040; J7050; J7060